=== PATIENT | female | born 1930 | race Caucasian/White ===

== ENCOUNTER → 2017-11-11 | Outpatient (CLI) | payer MEDICARE, BC ==
--- NOTE | 2017-11-11 14:52 | XR ---
EXAMINATION TYPE: XR chest 2V DATE OF EXAM: 11/11/2017 COMPARISON: 09/25/2016 TECHNIQUE: PA and lateral views submitted. HISTORY: Breast cancer FINDINGS: The lungs are clear and there is no pneumothorax, pleural effusion, or focal pneumonia. Linear tsai ges at both lung bases appears stable likely in the basis of atelectasis. There is a somewhat nodular density in the left retrocardiac region. Hypertrophic and degenerative changes spine with diffuse os teopenia. Pectus deformity noted. IMPRESSION: 1. COPD and changes of chronic interstitial pulmonary fibrosis suspected at the lung bases. 2. There is a vague 8 mm nodule in the left retrocardiac region. Recommend CT chest.
== END | disposition home or self-care (01) ==
LOC: RADXRMAIN 14:37
PROVIDERS: ATTEND Internal Medicine Hematology & Oncology
DX: J44.9 Chronic obstructive pulmonary disease, unspecified (principal); R91.1 Solitary pulmonary nodule; C50.919 Malignant neoplasm of unspecified site of unspecified female breast; M15.9 Polyosteoarthritis, unspecified; Z71.3 Dietary counseling and surveillance
CPT/HCPCS: 71046

== ENCOUNTER → 2018-03-15 | Outpatient (CLI) | payer MEDICARE, BC ==
--- NOTE | 2018-03-15 14:35 | XR ---
EXAMINATION TYPE: XR chest 2V DATE OF EXAM: 03/15/2018 COMPARISON: 11/11/2017 TECHNIQUE: PA and lateral views submitted. HISTORY: History of breast cancer FINDINGS: The lungs are clear and there is no pneumothorax, pleural effusion, or focal pneumonia. Hyperinflat ion noted. Hypertrophic and degenerative change of the spine. Correlate for COPD. Interstitial lung d isease in the differential diagnosis. No definite pulmonary nodule seen on today's exam. IMPRESSION: 1. No acute process.
== END | disposition home or self-care (01) ==
LOC: RADXRMAIN 14:17
PROVIDERS: ATTEND Internal Medicine Hematology & Oncology
DX: C50.911 Malignant neoplasm of unspecified site of right female breast (principal); R91.8 Other nonspecific abnormal finding of lung field; M15.9 Polyosteoarthritis, unspecified; Z71.3 Dietary counseling and surveillance
CPT/HCPCS: 71046

== ENCOUNTER → 2019-03-15 | Outpatient (CLI) | payer MEDICARE, BC ==
--- NOTE | 2019-03-15 14:42 | XR ---
EXAMINATION TYPE: XR chest 2V DATE OF EXAM: 03/15/2019 COMPARISON: 03/15/2018 TECHNIQUE: PA and lateral views submitted. HISTORY: Shortness of breath FINDINGS: Hyperinflation suggests COPD. Hypertrophic and degenerative change of the spine. Coarsened interstiti um suggests probable chronic underlying interstitial lung disease. Subsegmental changes at both lung bases most typical of atelectasis. Degenerative change of the spine. IMPRESSION: 1. COPD. Subsegmental changes at both lung bases most typical of atelectasis.
== END | disposition home or self-care (01) ==
LOC: RADXRMAIN 14:17
PROVIDERS: ATTEND Internal Medicine Hematology & Oncology
DX: C50.911 Malignant neoplasm of unspecified site of right female breast (principal); J44.9 Chronic obstructive pulmonary disease, unspecified; J98.11 Atelectasis; M15.9 Polyosteoarthritis, unspecified; Z71.3 Dietary counseling and surveillance
CPT/HCPCS: 71046

== ENCOUNTER → 2020-06-12 | Outpatient (CLI) | payer MEDICARE, BC ==
--- NOTE | 2020-06-12 16:52 | XR ---
EXAMINATION TYPE: XR chest 2V DATE OF EXAM: 06/12/2020 CLINICAL HISTORY: Carcinoma of breast. Osteoarthritis. History of bilateral mastectomy. TECHNIQUE: Frontal and lateral views of the chest are obtained. COMPARISON: Chest regressed 03/15/2019 FINDINGS: Lung volumes appear hyperexpanded with interstitial coarsening. The cardiomediastinal silh ouette is within normal limits for size. Pulmonary vasculature is normal. There is no focal air space opacity, pleural effusion, or pneumothorax seen. The osseous structures are intact. Decreased osseou s mineralization. IMPRESSION: 1. No acute cardiopulmonary process. 2. Emphysematous changes.
== END | disposition home or self-care (01) ==
LOC: RADXRMAIN 11:01
PROVIDERS: ATTEND Internal Medicine Hematology & Oncology
DX: C50.911 Malignant neoplasm of unspecified site of right female breast (principal); J43.9 Emphysema, unspecified; M15.9 Polyosteoarthritis, unspecified
CPT/HCPCS: 71046